=== PATIENT | male | born 1955 ===

== ENCOUNTER 2020-05-17 05:00 | Day surgery (SDC) | payer OTHER ==
[~2020-05-17 05:00] MED LIST: NAPROXEN500 MG PO
[2020-05-17] MEDS ORDERED: DUI500 PO (08:50)
[2020-05-17] MEDS ORDERED: TRAMADOL HCL50 MG PO (08:50)
== END 2020-05-17 12:25 | disposition home or self-care (01) ==
LOC: CIR.AMB 05:00
PROVIDERS: ATTEND Orthopaedic Surgery Sports Medicine
DX: M23.321 Other meniscus derangements, posterior horn of medial meniscus, right knee (principal); M65.861 Other synovitis and tenosynovitis, right lower leg; M23.341 Other meniscus derangements, anterior horn of lateral meniscus, right knee; Z20.828 Contact with and (suspected) exposure to other viral communicable diseases